=== PATIENT | female | born 1975 | race Caucasian/White ===

== ENCOUNTER 2024-05-22 11:13 | Outpatient (REF) | payer BC, SELFPAY ==
--- NOTE | ~2024-05-22 | XR_ITS ---
EXAMINATION: XR SHOULDER, BILATERAL CLINICAL INFORMATION: Bilateral shoulder pain COMPARISON: None. TECHNIQUE: 4 views of the shoulder FINDINGS: No fracture or malalignment. No significant degenerative findings of either shoulder. XR/XR shoulder LT min 2V IMPRESSION: Normal shoulders. Electronically signed by: Donis Castro MD 05/22/2024 04:38 PM [facility] [place]
--- NOTE | ~2024-05-22 | XR_ITS ---
EXAMINATION: XR SHOULDER, BILATERAL CLINICAL INFORMATION: Bilateral shoulder pain COMPARISON: None. TECHNIQUE: 4 views of the shoulder FINDINGS: No fracture or malalignment. No significant degenerative findings of either shoulder. XR/XR shoulder RT min 2V IMPRESSION: Normal shoulders. Electronically signed by: Donis Castro MD 05/22/2024 04:38 PM [facility] [place]
--- OUTSIDE RECORDS SUMMARY | 2024-05-22 11:40 | XMS_ITS | Patient Health Record ---
Author Organization Darrel Aaron DO, FACP Address [address], [place] [id number] Care Team Providers Care Social Insurance Analyst Name Role Phone Darrel Aaron Primary Care Provider ALLERGIES Allergen (clinical drug ingredient) Drug/Non Drug Allergy documented on EMR Reaction Allergy Type Onset Date Status Penicillin mild rash Drug Allergy Active REASON FOR REFERRAL No Information MEDICATIONS Medication SIG (Take, Route, Frequency, Duration) Notes Start Date End Date Status Rosuvastatin Calcium 10 MG 1 tablet Oral ly Once a day for 30 days 03/05/2020 Active Black Currant Seed Oil 500 MG 1 capsule Orally Once a day Active Probiotic - 1 capsule Orally Onc e a day Active IMMUNIZATIONS Vaccine Route Administration Date Status Comme nts Influenza Quad IM Intramuscular 04/15/2020 Administered Influenza Unknown 07/27/2017 Refused SOCIAL HISTORY Tobacco Use: Social History Observation Description Date Details (start date - stop date) Never Smoker NA - NA Sex Assigned At : Social History Observation Description Sex Assigned At Unknown Tobacco Use/Smoking Question Answer Notes Patient is a nonsmoker Additional Findings: Tobacco Non-User Cu rrent non-smoker, currently using no form of tobacco Alcohol Screen Question Answer Notes Did you have a drink contain ing alcohol in the past year? Yes How often did you have a dri nk containing alcohol in the past year? 2 to 4 times a month (2 points) How many drinks did you have on a typical day when you were drinking in the past year? 1 or 2 drinks (0 point) How often did you have 6 or more drinks on one occasion in the past year? Never (0 point) Points 2 Interpretation Negative PROBLEMS Problem Type ICD Code Onset Dates Problem Status W/U Status Risk SNOMED Code Notes Problem Acute non-recurrent maxillary sinusitis (J01.00) Active confirmed 75715343 Problem Hypercholesterolemia (E78.00) Active confirmed 34642573 Problem Other obesity due to excess calories (E66.09) Active confirmed 451848818 Problem Body mass index (BMI ) 31.0-31.9, adult (Z68.31) Active confirmed 715610269 PLAN OF TREATMENT Pending Test Test Name Order Date LIPOPROTEIN FRACTIONATION (LIPID PANEL) 03/05/2020 PROFILE, FASTING 03/05/2020 MAMMOGRAM DIGITAL BILATERAL SCREEN G0202 09/26/2018 Insurance Providers Payer Name Payer Address Payer Phone Subscriber Number Group Number Insured Name Patient Relationship to Insured Coverage Start Date Coverage End Date [facility] [address] [place], [place] [id number] [phone] [id number] Rylee Hood Self - patient is the insured MEDICAL (GENERAL) HISTORY Medical History History ICD Code Hypercholesterolemia E78.00 allergies Surgical History Surgery Date(Month/Year) section shoulder arthroscopy, left, due to calci fic tendonitis
== END 2024-05-22 11:14 | disposition home or self-care (01) ==
LOC: HO.XRAY 11:13
PROVIDERS: Visit Provider Physical Medicine & Rehabilitation
DX: M25.512 Pain in left shoulder (principal); M25.511 Pain in right shoulder
CPT/HCPCS: 73030

== ENCOUNTER 2025-03-08 14:16 | Outpatient (REF) | payer BC, SELFPAY ==
--- OUTSIDE RECORDS SUMMARY | 2025-03-08 14:22 | XMS_ITS | Clinical Summary ---
Author Organization [facility] Address [address] [place] [address] Phone Care Team Providers Care Sports Instructor Name Role Phone Darrel Aaron DO Primary Care Provider Darrel Aaron DO Unavailable [phone] Allergies Active Allergy Reactions Criticality Noted Date Comments Thimerosal 10/27/2020 Medications acetaZOLAMIDE (DIAMOX) 125 MG tablet Take 1 tablet (125 mg total) by mouth 2 (two) times a day for 3 days. Prevent altitude ill. begin 24 h prior to [place] cont 48 add'll h 6 tablet 10/27/2020 Active Immunizations Immunization Administration Dates Next Due Hepatitis A, Adult 10/28/2020 Tdap 10/04/2012 Typhoid, ViCPs 10/28/2020 Yellow Fever 10/28/2020 Social History Tobacco Use Types Packs/Day Years Used Date Smoking Tobacco: Never Assessed Education Answer Date Recorded Are you interested in more education? Not on lenora e 10/02/2022 Are you concerned about learning? Not on file 10/02/2022 No 10/02/2022 No 10/02/2022 Digital Access Answer Date Recorded No 10/30/2022 No 10/30/2022 No 10/30/2022 Reliable internet access at home? Not on file 10/30/2022 Device with a working camera? Not on file Comments Unknown Sex and Gender Information Value Date Recorded Sex Assigned at Female 10/23/2020 12:18 PM EDT Legal Sex Female 12:00 PM EDT Gender Identity Female 10/23/2020 12:18 PM EDT Sexual Orientation Straight 10/23/2020 12 :18 PM EDT Plan of Treatment Health Maintenance Due Date Last Done Comments LIPID PANEL 1976 DEPRESSION SCREENING 1988 SMOKING Hx and SMOKELESS TOB ACCO SCREENING 1989 HEPATITIS C SCREENING 1994 HIV ONE-TIME SCREENING (18-6 5 YEARS) 1994 PAP SMEAR 1997 MAMMOGRAM 2016 COLOGUARD 2021 COLONOSCOPY 2021 COLORECTAL CANCER SCREENING 2021 FIT TEST 2021 FOBT 2021 SIGMOIDOSCOPY 2021 VIRTUAL COLONOSCOPY 2021 Adult Td,Tdap Booster 10/04/2022 10/04/2012 INFLUENZA VACCINE (#1) 2025 04/15/2020 COVID-19 VACCINE (2 - 2024-2 6 season) 2025 05/10/2021 HEPATITIS A VACCINES Aged Out 10/28/2020 No long er eligible based on patient's age to complete this topic HIB VACCINES Aged Out No longer eligi ble based on patient's age to complete this topic MENINGOCOCCAL VACCINES (ACWY) Aged Out No longer eligible based on patient's age to complete this topic MENINGOCOCCAL VACCINES (B) Aged Out N o longer eligible based on patient's age to complete this topic PNEUMOCOCCAL VACCINES (0-49 years) Aged Out No longer eligible based on patient's age to complete this topic Medical Devices Not on file [facility] [place] [address] [place] [address] [place] [address] [place] [address] [place] [address] [place] [address] [place] [address] [place] [address] [place] [address] [place] [address] [place] [address] [place] [address] [place] [address] PPO EPO [facility] E[facility] Care Teams Sports Instructor Relationship Specialty Start Date End Date Darrel Aaron DO [address] [place] [id number] PCP - General Internal Medicine 10/23/20 Darrel Aaron DO [address] [place] [address] Internal Medicine 10/23/20 Additional Source Comments The information contained in this document represents components of the legal health record. It is not the complete legal health record.[facility]
== END 2025-03-08 14:17 | disposition home or self-care (01) ==
LOC: HO.MAMMO 14:16
PROVIDERS: PCP Nurse Practitioner Adult Health; Visit Provider Nurse Practitioner Adult Health
DX: Z12.31 Encounter for screening mammogram for malignant neoplasm of breast (principal)
CPT/HCPCS: 77063; 77067

== ENCOUNTER → 2025-03-08 14:45 | Outpatient (BNV) | payer BC, SELFPAY | PROVIDERS: PCP Nurse Practitioner Adult Health; Visit Provider Internal Medicine | DX: Z12.31 Encounter for screening mammogram for malignant neoplasm of breast (principal) | CPT/HCPCS: 77063; 77067 ==